=== PATIENT | male | born 1960 | race Caucasian/White ===

== ENCOUNTER 2022-07-24 20:13 | Emergency (ER) | payer OTHER, BC ==
[2022-07-24] MEDS ORDERED: Lidocaine 1% (PF) 30 ML VIAL ONE (20:38)
[2022-07-24] MEDS ORDERED: Boostrix 0.5 ML (Tdap) VIAL (>/=7 yrs of age) ONE (20:45)
[2022-07-24] MEDS ORDERED: Bacitracin 1 PK ONE (20:45)
== END 2022-07-24 21:32 | disposition home or self-care (01) ==
LOC: NAV ERS 20:13
DX: S01.112A Laceration without foreign body of left eyelid and periocular area, initial encounter (principal); S50.12XA Contusion of left forearm, initial encounter; S50.11XA Contusion of right forearm, initial encounter; E11.9 Type 2 diabetes mellitus without complications; K21.9 Gastro-esophageal reflux disease without esophagitis; E78.00 Pure hypercholesterolemia, unspecified; I10 Essential (primary) hypertension; Z79.84 Long term (current) use of oral hypoglycemic drugs; Z79.899 Other long term (current) drug therapy; Y04.2XXA Assault by strike against or bumped into by another person, initial encounter
CPT/HCPCS: 12013; 90471; 90715; J2001